=== PATIENT | female | born 1935 | race Caucasian/White ===

== ENCOUNTER 2018-06-28 16:31 | Emergency (ER) | payer OTHER, MEDICAID ==
[~2018-06-28] VITALS: Ht 157.5 cm; Wt 72.6 kg
[2018-06-28 16:31] VITALS: BP_SYST 148
--- NOTE | 2018-06-28 16:31 | NUR ---
BROUGHT IN BY [facility] FROM [facility], PLACED IN BED #7 AND TRIAGED. REPORT GIVEN TO MATTHEW
--- NOTE | 2018-06-28 16:31 | NUR ---
Pt was with caregiver in the restroom and she fell and hit head on floor. ~2cm lac to mid forehead, bleeding controlled. Unable to perform accurate neuro assessment r/t pt.'s hx alzheimer's. Resting tremors noted to lips and BHA. Pt AAO to self. Addendum: 06/28/18 at 1712 by ANJALI Pt arrives with C-collar in place.
[2018-06-28] MEDS ORDERED: LOPE2CAP PO (16:46)
[2018-06-28] MEDS ORDERED: ESCI10TA PO (16:46)
[2018-06-28] MEDS ORDERED: XALEYE OP (16:46)
[2018-06-28] MEDS ORDERED: ASPI-1153 PO (16:46)
[2018-06-28] MEDS ORDERED: CYAN250L PO (16:46)
[2018-06-28] MEDS ORDERED: OMEP20CA10 PO (16:46)
[2018-06-28] MEDS ORDERED: ACET-2634 PO (16:46)
[2018-06-28] MEDS ORDERED: LORA10TA7 PO (16:46)
[2018-06-28] MEDS ORDERED: LIP10 PO (16:46)
[2018-06-28] MEDS ORDERED: CARV25TA55 PO (16:46)
[2018-06-28] MEDS ORDERED: ARIP2TAB3 PO (16:46)
--- NOTE | 2018-06-28 16:58 | NUR ---
Moises gannon in [facility] - 06/28/18 at [address]59 [address] CHUCK[address] Pt [address] CT via stretcher.
--- NOTE | 2018-06-28 16:58 | NUR ---
TAKEN TO RADIOLOGY VIA AKIRA
[2018-06-28] MEDS ORDERED: KETOROLAC TROMETHAMINE 15 MG VIAL IM ONE (17:00)
--- NOTE | 2018-06-28 17:05 | NUR ---
Pt returns from x-ray.
--- NOTE | 2018-06-28 17:10 | NUR ---
Pt alert and responsive, no needs verbalized at this time.
--- NOTE | 2018-06-28 17:20 | NUR ---
Dr. Chávez at bedside, laceration well approximated with tissue adhesive.
[2018-06-28 18:40] VITALS: BP_SYST 154
--- NOTE | 2018-06-28 18:40 | NUR ---
Patient given written and verbal discharge instructions and verbalizes understanding. ER MD discussed with patient the results and treatment provided. Patient in stable condition. ID arm band removed. No RX given Patient educated on pain management and to follow up with PMD. Pain Scale 0/10. Opportunity for questions provided and answered. Medication side effect fact sheet provided. Pt leaves in c/o BLS returning to [facility].
== END 2018-06-28 18:40 | disposition home or self-care (01) ==
LOC: SED 16:31
DX: S01.81XA Laceration without foreign body of other part of head, initial encounter (principal); G20 Parkinson's disease; G30.9 Alzheimer's disease, unspecified; Z79.82 Long term (current) use of aspirin; Z79.899 Other long term (current) drug therapy; W22.8XXA Striking against or struck by other objects, initial encounter; Y93.89 Activity, other specified; Y92.89 Other specified places as the place of occurrence of the external cause; Y99.8 Other external cause status
CPT/HCPCS: 12011; 70450; 72125; 96372; 99284; J1885

== ENCOUNTER 2019-07-30 19:10 | Emergency (ER) | payer OTHER, MEDICAID ==
[~2019-07-30] VITALS: Ht 157.5 cm; Wt 72.6 kg
[2019-07-30 19:10] VITALS: BP_SYST 145
[~2019-07-30 19:10] MED LIST: ACET-2634 PO; ARIP2TAB3 PO; ASPI-1153 PO; CARV25TA55 PO; CYAN250L PO; ESCI10TA PO; LIP10 PO; LOPE2CAP PO; LORA10TA7 PO; OMEP20CA11 PO; XALEYE OP
--- NOTE | 2019-07-30 19:35 | NUR ---
Patient to ER bed 5 to gown for evaluation. Side rails up.
--- NOTE | 2019-07-30 19:49 | NUR ---
Pt's son arrived bedside for emotional support
[2019-07-30] MEDS ORDERED: ONDA4TAB5 PO (19:50)
--- NOTE | 2019-07-30 19:51 | NUR ---
Medication reconciliation completed with information provided by Clarissa. Any prior medication reconciliation on file was reviewed and corrected.
[2019-07-30] MEDS ORDERED: DIPH-TET-PERTUS Vaccine 0.5 ML VIAL (ADACEL) I.M. ONE (21:15)
[2019-07-30 21:56] LABS: BASOPHILS % (AUTO) 0.7 % (0.0-2.0); EOSINOPHILS # (AUTO) 0.1 K/uL (0.0-0.4); EOSINOPHILS % (AUTO) 1.6 % (0.0-4.0); HEMATOCRIT 39.6 % (36-48); HEMOGLOBIN 13.2 g/dL (12.0-16.0); LYMPHOCYTES # (AUTO) 1.9 K/uL (1.0-5.5); LYMPHOCYTES % (AUTO) 32.6 % (20.5-51.5); MEAN CORPUSCULAR HEMOGLOBIN 28 pg (27-31); MEAN CORPUSCULAR HGB CONC 33 % (32-36); MEAN CORPUSCULAR VOLUME 85 fL (79.0-98.0); MONOCYTES # (AUTO) 0.5 K/uL (0.0-1.0); MONOCYTES % (AUTO) 7.8 % (1.7-9.3); NEUTROPHILS # (AUTO) 3.3 K/uL (1.8-7.7); NEUTROPHILS % (AUTO) 57.3 % (40.0-70.0); PLATELET COUNT (AUTO) 139 K/uL (130-430); RED BLOOD CELL COUNT(AUTO) 4.66 MIL/uL (4.2-6.2); RED CELL DISTRIBUTION WIDTH 14.8 % (9.0-15.0); WHITE BLOOD COUNT (AUTO) 5.8 K/uL (4.8-10.8)
--- NOTE | 2019-07-30 22:00 | NUR ---
Pt BIBA to ED C/O hand laceration. Discovered to have a laceration on her left hand and unknown mechanism by a staff nurse at the retirement. Staff unable to Determine mechanism of injury. Limited review of systems due to patient Alzheimer's dementia. Patient takes aspirin but is not on any other antithrombotic medications per review of her institutional medication list from the retirement. Pt with Hx of dementia. No other complaints and or injuries noted. VSS no s/s of acute distress. Resting on gurney rails up
[2019-07-30 22:02] LABS: ANION GAP 5 (5-15); CALCIUM 8.7 mg/dL (8.4-11.0); CHLORIDE 109 mmol/L (98-107); CREATININE 1.01 mg/dL (0.55-1.30); GLUCOSE 124 mg/dL (70-99); POTASSIUM 4.1 mmol/L (3.5-5.1); SODIUM SERUM 142 mmol/L (136-145); UREA NITROGEN, BLOOD 15 mg/dL (8-21)
[2019-07-30 22:08] LABS: ALANINE AMINOTRANSFERASE 15 U/L (12-78); ALBUMIN 3.3 g/dL (3.4-4.8); ASPARTATE AMINOTRANSFERASE 13 U/L (10-37); TOTAL BILIRUBIN 0.4 mg/dL (0.0-1.0)
--- NOTE | 2019-07-30 23:10 | NUR ---
Pt remains in stable condition.
--- NOTE | 2019-07-31 | NUR ---
Lac repair well tolerated. VSS no s/s of acute distress
[2019-07-31 00:30] VITALS: BP_SYST 145
--- NOTE | 2019-07-31 00:30 | NUR ---
Patient given written and verbal discharge instructions and verbalizes understanding. ER MD discussed with patient the results and treatment provided. Patient in stable condition. ID arm band removed. Patient educated on pain management and to follow up with PMD. Pain Scale 0/10 Opportunity for questions provided and answered
== END 2019-07-31 00:30 | disposition home or self-care (01) ==
LOC: SED 19:10
DX: S61.412A Laceration without foreign body of left hand, initial encounter (principal); G20 Parkinson's disease; G30.9 Alzheimer's disease, unspecified; X58.XXXA Exposure to other specified factors, initial encounter; Y93.89 Activity, other specified; Y92.89 Other specified places as the place of occurrence of the external cause; Y99.8 Other external cause status
CPT/HCPCS: 36415; 80053; 82962; 85025; 90715; 99283